=== PATIENT | female | born 1945 | race Caucasian/White ===

== ENCOUNTER 2017-08-31 10:17 | Outpatient (CLI) | payer MEDICARE ==
--- NOTE | 2017-08-31 11:53 | RAD ---
CERVICAL SPINE SERIES THREE VIEWS: History: Neck pain, radiculopathy. FINDINGS: Bones appear slightly demineralized. Vertebral bodies are normal in height. There is marked disc narr owing at C5-6, C6-7 and C7-T1. There are degenerative facet changes. There is no soft tissue swelling . 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 POS: [facility]
== END 2017-08-31 10:18 | disposition home or self-care (01) ==
LOC: RAD 10:17
PROVIDERS: ATTEND Internal Medicine
DX: M54.12 Radiculopathy, cervical region (principal)
CPT/HCPCS: 72040

== ENCOUNTER 2018-09-24 07:14 | Emergency (ER) | payer MEDICARE ==
[2018-09-24] MEDS ORDERED: Lorazepam 2 MG/ML VIAL ONE (08:51)
[2018-09-24] MEDS ORDERED: Meclizine HCl 25 MG TAB ONE (08:52)
[2018-09-24] MEDS ORDERED: Dexamethasone 10 MG/ML VIAL ONE (08:52)
[2018-09-24 09:17] LABS: #Eosinphils 0.2 thou/uL (0.0-0.7); #Lymphocytes 1.4 thou/uL (1.20-3.40); #Monocytes 0.5 thou/uL (0.11-0.59); #Neutrophils 4.4 thou/uL (1.40-6.50); %Basophils 0.7 % (0.0-1.0); %Eosinophils 2.5 % (0.0-10.0); %Lymphocytes 21.7 % (21.0-51.0); %Monocytes 7.8 % (0.0-10.0); %Neutrophils 67.4 % (42.0-75.0); Hemoglobin 14.9 g/dL (12.0-16.0); Mean Corpuscular HGB CONC 33.1 g/dL (32.0-36.0); Mean Corpuscular Volume 93.5 fL (78.0-98.0); Mean Platelet Volume 7.2 fL (7.4-10.4); Platelet Count 254 thou/uL (130-400); RBC Distribution Width 12.1 % (11.5-14.5); Red Blood Cell (RBC) Count 4.82 mill/uL (4.20-5.40); White Blood Cell (WBC) Count 6.5 thou/uL (4.8-10.8)
[2018-09-24 09:37] LABS: ALT (SGPT) 14 U/L (8-55); AST (SGOT) 20 U/L (5-34); Albumin 4.3 g/dL (3.4-4.8); Alkaline Phosphatase 69 U/L (40-150); Anion Gap 16 mmol/L (10-20); BUN (Urea Nitrogen) 18 mg/dL (9.8-20.1); Bilirubin, Total 0.6 mg/dL (0.2-1.2); Calc. Creatinine Clearance 0 mL/min (70-130); Calcium 9.5 mg/dL (7.8-10.44); Carbon Dioxide 20 mmol/L (23-31); Chloride 109 mmol/L (98-107); Estimated GFR-MDRD 82; Globulin 2.9 g/dL (2.4-3.5); Glucose 91 mg/dL (83-110); Potassium 4.5 mmol/L (3.5-5.1); Protein, Total 7.2 g/dL (6.0-8.3); Sodium 140 mmol/L (136-145)
--- NOTE | 2018-09-24 10:21 | CT ---
CT Brain WO Con History: [Pain. Vertigo and dizziness.] Comparison: CT brain January 2016 Findings: No acute hemorrhage or infarct. No midline shift or mass effect. Ventricular size and extra -axial CSF spaces are normal. Calvarium is intact. Urinary sinuses and mastoids are clear. Impression: No acute intracranial abnormality.
--- NOTE | 2018-09-24 10:25 | CT ---
CTA Angio Neck W WO Con History: [Neck pain] Comparison: None Findings: CT angiogram of the neck was performed after the intravenous administration of contrast. 3- D rendering was provided. Lung apices are clear. Moderate degenerative changes of the cervical spine. No acute fracture or vasquez lignment. Normal location of the temperament either joints. No cervical adenopathy. Paraspinal muscular structures normal. Vessels: Left vertebral artery is dominant. Right vertebral artery is felt to terminate in the PICA. Mild tortuosity of the vertebral arteries suggesting chronic hypertension. Common carotid arteries are patent. Pertinent NASCET criteria no hemodynamically significant stenosis of the internal carotid arteries. Impression: Unremarkable examination of the neck. Moderate degenerative changes of the cervical spine .
[2018-09-24] MEDS ORDERED: ISOVUE-370 76%-LOCM 1 ML ONE (11:58)
== END 2018-09-24 10:45 | disposition home or self-care (01) ==
LOC: ERS 07:14 → EEVIPCON 07:14 → ERS 10:45
DX: R42 Dizziness and giddiness (principal); M54.2 Cervicalgia; Z86.73 Personal history of transient ischemic attack (TIA), and cerebral infarction without residual deficits
CPT/HCPCS: 70450; 70498; 80053; 85025; 93005; 96361; 96374; 96375; J1100; J2060; J8499; Q9966

== ENCOUNTER 2019-12-12 09:58 | Outpatient (CLI) | payer MEDICARE ==
--- NOTE | 2019-12-12 10:48 | ULT ---
ULTRASOUND ABDOMINAL AORTA: HISTORY: Screening for abdominal aortic aneurysm FINDINGS: The abdominal aortic measurements are as follows: Proximal: 2.6 x 2.3cm Mid: 1.9 x 1.6cm Distal: 1.6 x 1.1cm IMPRESSION: No evidence of abdominal aortic aneurysm.
== END 2019-12-12 09:59 | disposition home or self-care (01) ==
LOC: BICULT 09:58
PROVIDERS: ATTEND Internal Medicine
DX: Z13.6 Encounter for screening for cardiovascular disorders (principal)
CPT/HCPCS: 76706